=== PATIENT | male | born 1970 | race Caucasian/White ===

== ENCOUNTER 2020-05-31 10:50 | Emergency (ER) | payer BC ==
[~2020-05-31] VITALS: Ht 165.1 cm; Wt 90.0 kg
--- NOTE | 2020-05-31 11:10 | NUR ---
pt is a 50m bib ems with complaints of intermittant cp since last night about 9:00pm. He went to this morning and they transported him here for a cardiac work up. provider at bedside for eval. cardiac, bp, and sp02 monitors in place. ekg completed. provider at bedside for eval and poc. he describes the pain as a 2/10 and intermittant. call light within reach.
[2020-05-31 11:33] LABS: BASOPHILS % (AUTO) 1 % (0-1); EOSINOPHILS % (AUTO) 3 % (1-7); LYMPHOCYTES % (AUTO) 41 % (22-44); MEAN CORPUSCULAR HEMOGLOBIN 27.1 pg (27.5-34.5); MEAN CORPUSCULAR HGB CONC 33.6 g/dL (33.2-36.2); MEAN PLATELET VOLUME 8.1 fL (7.4-10.4); MONOCYTES % (AUTO) 10 % (2-9); NEUTROPHILS % (AUTO) 45 % (42-75); PLATELET COUNT 218 x10^3/uL (130-400); RED BLOOD COUNT 5.55 x10^6/uL (4.38-5.82); RED CELL DISTRIBUTION WIDTH 13.4 % (9.4-14.8)
[2020-05-31 11:39] LABS: MD NO
--- NOTE | 2020-05-31 11:42 | NUR ---
20g iv in the right AC placed by EMS and 324 of Aspirin was given at the before arrival
[2020-05-31 11:47] LABS: ALBUMIN 4.2 g/dL (3.4-5.0); ANION GAP 7 mmol/L (5-15); CALCIUM 9.4 mg/dL (8.5-10.1); CHLORIDE 110 mmol/L (98-107); CREATININE 1.06 mg/dL (0.7-1.3)
[2020-05-31 11:51] LABS: TROPONIN I < 0.015 ng/mL (0.000-0.045)
[2020-05-31 13:14] VITALS: BP 120/80
== END 2020-05-31 13:16 | disposition home or self-care (01) ==
LOC: ED 12:18
DX: R07.89 Other chest pain (principal); R11.0 Nausea; R94.31 Abnormal electrocardiogram [ECG] [EKG]
CPT/HCPCS: 36415; 71045; 80048; 82040; 84484; 85025; 93005; 99285

== ENCOUNTER → 2020-06-18 | Outpatient (CLI) | payer BC | END | disposition home or self-care (01) | LOC: CFH 08:48 | PROVIDERS: ATTEND Internal Medicine Cardiovascular Disease | DX: R07.9 Chest pain, unspecified (principal); Z82.49 Family history of ischemic heart disease and other diseases of the circulatory system | CPT/HCPCS: 93306 ==